=== PATIENT | female | born 1990 | race Hispanic/Latino ===

== ENCOUNTER 2017-07-20 21:12 | Emergency (ER) | payer BC ==
[~2017-07-20] VITALS: Ht 160 cm; Wt 60.1 kg
[~2017-07-20 21:12] MED LIST: CEFDINIR300 MG PO; HYCODAN SYRUP480 ML PO; Motrin PO; PREDNISONE20 MG PO; PREDNISONE50 MG PO; PRENATAL MULTI1 EAC2 PO; Percocet 5/325,Endoc PO; RITALIN20 MG PO; TYLENOL EXTRA500 MG PO; VALTREX50 MG/ML PO
[2017-07-20 22:19] LABS: HEMATOCRIT 36.5 % (36.0-46.0); HEMOGLOBIN 12.4 G/DL (11.9-15.5); MCH 29.8 PG (29.0-34.0); MCV 87.7 FL (83-99); PLATELET COUNT 254 K/uL (156-360); RBC DIS.WIDTH-CV 12.2 % (11.8-14.6); RBC DIS.WIDTH-SD 39.4 % (39-53); RED BLOOD COUNT 4.16 M/uL (3.80-5.20); WHITE BLOOD COUNT 10.6 K/uL (4.1-10.2)
[2017-07-20 22:31] LABS: APPEARANCE CLEAR ((CLEAR)); BILIRUBIN NEGATIVE; BLOOD NEGATIVE; COLOR YELLOW ((YELLOW)); GLUCOSE (STRIP) NEGATIVE; KETONES 20; LEUKOCYTES NEGATIVE; NITRITE NEGATIVE; PROTEIN (STRIP) NEGATIVE; SPECIFIC GRAVITY 1.019 (1.000-1.030); UCUL ADDED? NO; UROBILINOGEN 0.2 MG/DL (0.2-1.0)
[2017-07-20 22:32] LABS: CHLORIDE 103 mEq/L (99-109); POTASSIUM 3.8 mEq/L (3.7-5.4); SODIUM 135 mEq/L (136-147)
[2017-07-20 22:34] LABS: GLUCOSE 83 mg/dL (70-99)
[2017-07-20 22:38] LABS: CREATININE 0.7 mg/dL (0.6-1.3); GFR ESTIMATE (CALCULATED) > 59 mL/min/
[2017-07-20 22:39] LABS: UREA NITROGEN (BUN) 7 mg/dL (9-23)
[2017-07-20 23:04] LABS: QUANTITATIVE HCG 205563.5 MIU/ML
[2017-07-21] MEDS ORDERED: AMOXICILLIN875 MG PO (00:37)
[2017-07-21 01:06] VITALS: BP 113/64
== END 2017-07-21 01:07 | disposition home or self-care (01) ==
LOC: EME 21:12
PROVIDERS: Physician Assistant
DX: O99.511 Diseases of the respiratory system complicating pregnancy, first trimester (principal); R05 Cough; J02.9 Acute pharyngitis, unspecified; O21.9 Vomiting of pregnancy, unspecified; Z3A.08 8 weeks gestation of pregnancy
CPT/HCPCS: 80048; 81003; 84702; 85027; 87502; 99281; 99284; J7040

== ENCOUNTER 2017-12-27 15:51 | Outpatient (CLI) | payer BC ==
[~2017-12-27] VITALS: Ht 160 cm; Wt 69.0 kg
[~2017-12-27 15:51] MED LIST changes: +AMOXICILLIN875 MG PO; +DICLEGIS DR 101 EACH PO; +PRENATAL TABLE1 EAC3 PO
[2017-12-27 16:13] VITALS: BP 105/57
[2017-12-27 17:31] LABS: APPEARANCE CLEAR ((CLEAR)); BILIRUBIN NEGATIVE; BLOOD NEGATIVE; COLOR STRAW ((YELLOW)); GLUCOSE (STRIP) NEGATIVE; KETONES NEGATIVE; LEUKOCYTES NEGATIVE; NITRITE NEGATIVE; PROTEIN (STRIP) NEGATIVE; SPECIFIC GRAVITY 1.004 (1.000-1.030); UCUL ADDED? NO; UROBILINOGEN 0.2 MG/DL (0.2-1.0)
[2017-12-27 18:56] VITALS: BP 101/53
[2017-12-27] MEDS ORDERED: IRON325 M1 PO (20:18)
== END 2017-12-27 23:00 | disposition home or self-care (01) ==
LOC: LDRP-OP 15:51 → 2WEST 15:52 → LDRP-OP 03-27 15:13
PROVIDERS: Nurse Practitioner
DX: O60.03 Preterm labor without delivery, third trimester (principal); Z3A.31 31 weeks gestation of pregnancy
CPT/HCPCS: 59025; 81003; 82731; G0378

== ENCOUNTER 2018-01-15 23:04 | Outpatient (CLI) | payer BC ==
[~2018-01-15] VITALS: Ht 157.5 cm; Wt 71.7 kg
[~2018-01-15 23:04] MED LIST changes: +IRON325 M1 PO
[2018-01-15 23:20] VITALS: BP 104/58
[2018-01-16 00:11] VITALS: BP 108/52
== END 2018-01-16 00:55 | disposition home or self-care (01) ==
LOC: LDRP-OP 23:04 → 2WEST 23:05 → LDRP-OP 03-27 05:43
DX: O36.8130 Decreased fetal movements, third trimester, not applicable or unspecified (principal); O47.03 False labor before 37 completed weeks of gestation, third trimester; Z3A.34 34 weeks gestation of pregnancy
CPT/HCPCS: 59025; G0378; J3105

== ENCOUNTER 2018-01-31 13:01 | Inpatient (IN) | payer BC ==
[~2018-01-31] VITALS: Ht 160 cm; Wt 71.2 kg
[2018-01-31 13:25] VITALS: BP 109/57
[2018-01-31 14:54] VITALS: BP 91/53
[2018-01-31 16:13] VITALS: BP 102/55
[2018-01-31 16:32] LABS: BASOPHIL (%) 0.4 % (0-1); EOSINOPHIL (%) 0.5 % (0-5); HEMATOCRIT 32.4 % (36.0-46.0); HEMOGLOBIN 10.4 G/DL (11.9-15.5); IMMATURE GRANULOCYTE (%) 0.8 % (0.0-0.7); LYMPHOCYTE (%) 13.5 % (15-42); LYMPHOCYTE COUNT 1.2 K/uL (1.0-2.8); MCH 30.3 PG (29.0-34.0); MCHC 32.1 G/DL (30.0-36.0); MCV 94.5 FL (83-99); MONOCYTE (%) 6.7 % (3-12); MONOCYTE COUNT 0.6 K/uL (0-0.8); NEUTROPHIL (%) 78.1 % (45-76); NEUTROPHIL COUNT 6.7 K/uL (1.8-6.4); PLATELET COUNT 162 K/uL (156-360); RBC DIS.WIDTH-CV 13.7 % (11.8-14.6); RED BLOOD COUNT 3.43 M/uL (3.80-5.20); WHITE BLOOD COUNT 8.5 K/uL (4.1-10.2)
[2018-01-31 16:59] VITALS: BP 104/56
[2018-01-31 18:26] LABS: AMPHETAMINE NEGATIVE (500 ng/mL); BARBITURATES NEGATIVE (200 ng/mL); BENZODIAZEPINES NEGATIVE (150 ng/mL); BUPRENORPHINE NEGATIVE (10 ng/mL); COCAINE NEGATIVE (150 ng/mL); METHADONE NEGATIVE (200 ng/mL); METHAMPHETAMINE NEGATIVE (500 ng/mL); OPIATES (MORPHINE) NEGATIVE (100 ng/mL); OXYCODONE NEGATIVE (100 ng/mL); PHENCYCLIDINE NEGATIVE (25 ng/mL); PROPOXYPHENE NEGATIVE (300 ng/mL); THC CANNABINOIDS NEGATIVE (50 ng/mL); TRICYCLIC ANTIDEPRESSANTS NEGATIVE (300 ng/mL)
[2018-01-31 22:07] VITALS: BP 120/65
[2018-02-01] VITALS (9 sets, daily range): BP systolic 92–120; BP diastolic 50–61
[2018-02-01] MEDS ORDERED: PERCOCET 5/31 TABLET PO (01:35)
[2018-02-01] MEDS ORDERED: MOTRIN800 MG PO (01:35)
[2018-02-01 07:00] LABS: BASOPHIL (%) 0.2 % (0-1); EOSINOPHIL (%) 0.2 % (0-5); HEMATOCRIT 30.4 % (36.0-46.0); IMMATURE GRANULOCYTE (%) 0.4 % (0.0-0.7); LYMPHOCYTE (%) 5.4 % (15-42); LYMPHOCYTE COUNT 0.6 K/uL (1.0-2.8); MCH 30.7 PG (29.0-34.0); MCHC 32.9 G/DL (30.0-36.0); MCV 93.3 FL (83-99); MONOCYTE (%) 5.1 % (3-12); MONOCYTE COUNT 0.5 K/uL (0-0.8); NEUTROPHIL (%) 88.7 % (45-76); NEUTROPHIL COUNT 9.3 K/uL (1.8-6.4); PLATELET COUNT 138 K/uL (156-360); RBC DIS.WIDTH-CV 13.2 % (11.8-14.6); RBC DIS.WIDTH-SD 45.2 % (39-53); RED BLOOD COUNT 3.26 M/uL (3.80-5.20); WHITE BLOOD COUNT 10.4 K/uL (4.1-10.2)
[2018-02-02 03:09] VITALS: BP 117/57
[2018-02-02 07:55] VITALS: BP 101/55
[2018-02-02 10:41] VITALS: BP 92/52
[2018-02-02 14:57] VITALS: BP 97/53
== END 2018-02-03 15:45 | disposition home or self-care (01) | DRG 765 ==
LOC: LDRP-OP 13:01 → 2WEST 13:02 → LDRP-OP 03-27 01:20
PROVIDERS: Advanced Practice Midwife; Obstetrics & Gynecology
PROC: 10D00Z1 Extraction of Products of Conception, Low, Open Approach (ICD-10-PCS; principal; 2018-01-31)
DX: O60.14X1 Preterm labor third trimester with preterm delivery third trimester, fetus 1 (principal); O99.354 Diseases of the nervous system complicating childbirth; O99.12 Other diseases of the blood and blood-forming organs and certain disorders involving the immune mechanism complicating childbirth; Z37.0 Single live birth; Z3A.36 36 weeks gestation of pregnancy; D69.59 Other secondary thrombocytopenia; O34.211 Maternal care for low transverse scar from previous cesarean delivery; E03.9 Hypothyroidism, unspecified; G43.909 Migraine, unspecified, not intractable, without status migrainosus; O99.02 Anemia complicating childbirth; O99.284 Endocrine, nutritional and metabolic diseases complicating childbirth; D64.9 Anemia, unspecified; O12.04 Gestational edema, complicating childbirth; L72.8 Other follicular cysts of the skin and subcutaneous tissue; O99.72 Diseases of the skin and subcutaneous tissue complicating childbirth; Z90.49 Acquired absence of other specified parts of digestive tract
CPT/HCPCS: 82731; 85025; 86850; 86900; 86901; 93971; J0690; J1170; J2274; J2405; J2590; J7120; S0020

== ENCOUNTER 2018-02-08 12:45 | Inpatient (IN) | payer BC ==
[~2018-02-08] VITALS: Ht 160 cm; Wt 62.6 kg
[~2018-02-08 12:45] MED LIST changes: +MOTRIN800 MG PO; +PERCOCET 5/31 TABLET PO
[2018-02-08 12:58] VITALS: BP 130/56
[2018-02-08 14:32] LABS: BASOPHIL (%) 0.3 % (0-1); EOSINOPHIL (%) 1.1 % (0-5); EOSINOPHIL COUNT 0.1 K/uL (0-0.3); IMMATURE GRANULOCYTE (%) 0.6 % (0.0-0.7); LYMPHOCYTE (%) 6.4 % (15-42); LYMPHOCYTE COUNT 0.7 K/uL (1.0-2.8); MCH 30.6 PG (29.0-34.0); MCHC 33.9 G/DL (30.0-36.0); MONOCYTE (%) 2.9 % (3-12); MONOCYTE COUNT 0.3 K/uL (0-0.8); NEUTROPHIL (%) 88.7 % (45-76); NEUTROPHIL COUNT 9.2 K/uL (1.8-6.4); RBC DIS.WIDTH-SD 42.4 % (39-53); WHITE BLOOD COUNT 10.3 K/uL (4.1-10.2)
[2018-02-08 14:33] LABS: HEMOGLOBIN 12.9 G/DL (11.9-15.5); PLATELET COUNT 239 K/uL (156-360); RED BLOOD COUNT 4.22 M/uL (3.80-5.20)
[2018-02-08 16:46] LABS: THYROTROPIN (TSH) 0.31 MIU/L (0.4-5.5)
[2018-02-08 20:13] VITALS: BP 106/69
[2018-02-08 22:34] VITALS: BP 120/58
[2018-02-09 03:00] VITALS: BP 98/54
[2018-02-09 07:20] VITALS: BP 111/60
[2018-02-09 11:22] VITALS: BP 99/57
[2018-02-09 14:07] VITALS: BP 117/70
[2018-02-09 22:39] VITALS: BP 127/68
[2018-02-10 02:32] VITALS: BP 113/57
[2018-02-10 07:33] LABS: BASOPHIL (%) 0.4 % (0-1); EOSINOPHIL (%) 6.9 % (0-5); EOSINOPHIL COUNT 0.8 K/uL (0-0.3); HEMATOCRIT 31.4 % (36.0-46.0); IMMATURE GRANULOCYTE (%) 0.7 % (0.0-0.7); LYMPHOCYTE (%) 8.2 % (15-42); LYMPHOCYTE COUNT 0.9 K/uL (1.0-2.8); MCH 30.2 PG (29.0-34.0); MCHC 32.8 G/DL (30.0-36.0); MCV 92.1 FL (83-99); MONOCYTE (%) 2.9 % (3-12); MONOCYTE COUNT 0.3 K/uL (0-0.8); NEUTROPHIL (%) 80.9 % (45-76); NEUTROPHIL COUNT 8.7 K/uL (1.8-6.4); PLATELET COUNT 196 K/uL (156-360); RBC DIS.WIDTH-CV 13.2 % (11.8-14.6); RBC DIS.WIDTH-SD 44.6 % (39-53); RED BLOOD COUNT 3.41 M/uL (3.80-5.20); WHITE BLOOD COUNT 10.8 K/uL (4.1-10.2)
[2018-02-10 07:35] LABS: HEMOGLOBIN 10.3 G/DL (11.9-15.5)
[2018-02-10 11:00] VITALS: BP 113/55
[2018-02-10 15:12] LABS: INTER. NORMALIZED RATIO 1.2
[2018-02-10 15:15] LABS: PTT 27.7 SEC (25-37)
[2018-02-10 19:15] VITALS: BP 120/65
[2018-02-10 23:06] VITALS: BP 121/59
[2018-02-11 03:15] VITALS: BP 124/58
[2018-02-11 04:07] LABS: BASOPHIL (%) 0.7 % (0-1); BASOPHIL COUNT 0.1 K/uL (0-0.1); EOSINOPHIL (%) 15.9 % (0-5); EOSINOPHIL COUNT 1.2 K/uL (0-0.3); HEMATOCRIT 30.1 % (36.0-46.0); IMMATURE GRANULOCYTE (%) 0.7 % (0.0-0.7); LYMPHOCYTE (%) 22.6 % (15-42); LYMPHOCYTE COUNT 1.7 K/uL (1.0-2.8); MCH 30.8 PG (29.0-34.0); MCHC 33.2 G/DL (30.0-36.0); MCV 92.6 FL (83-99); MONOCYTE (%) 5.4 % (3-12); MONOCYTE COUNT 0.4 K/uL (0-0.8); NEUTROPHIL (%) 54.7 % (45-76); NEUTROPHIL COUNT 4.1 K/uL (1.8-6.4); PLATELET COUNT 211 K/uL (156-360); RBC DIS.WIDTH-CV 13.1 % (11.8-14.6); RBC DIS.WIDTH-SD 44.6 % (39-53); RED BLOOD COUNT 3.25 M/uL (3.80-5.20); WHITE BLOOD COUNT 7.4 K/uL (4.1-10.2)
[2018-02-11 10:05] VITALS: BP 120/67
== END 2018-02-11 15:33 | disposition home or self-care (01) | DRG 776 ==
LOC: LDRP-OP 12:45 → 2WEST 12:46
PROVIDERS: Obstetrics & Gynecology; Obstetrics & Gynecology Obstetrics
DX: O86.4 Pyrexia of unknown origin following delivery (principal); O99.13 Other diseases of the blood and blood-forming organs and certain disorders involving the immune mechanism complicating the puerperium; D72.829 Elevated white blood cell count, unspecified; Z3A.36 36 weeks gestation of pregnancy
CPT/HCPCS: 71046; 74177; 83605; 84439; 84443; 85025; 85610; 85730; 87040; 93005; G0378; J0696; J7120